=== PATIENT | female | born 1990 | race Two or more races ===

== ENCOUNTER 2022-08-21 14:11 | Outpatient (CLI) | payer OTHER | END 2022-08-21 16:00 | disposition home or self-care (01) | LOC: PRENATAL 14:11 | PROVIDERS: ATTEND Obstetrics & Gynecology Maternal & Fetal Medicine | DX: O36.80X0 Pregnancy with inconclusive fetal viability, not applicable or unspecified (principal); O34.219 Maternal care for unspecified type scar from previous cesarean delivery; O09.219 Supervision of pregnancy with history of pre-term labor, unspecified trimester; O10.019 Pre-existing essential hypertension complicating pregnancy, unspecified trimester; Z3A.11 11 weeks gestation of pregnancy ==

== ENCOUNTER 2022-10-16 12:32 | Outpatient (CLI) | payer OTHER | END 2022-10-16 13:59 | disposition home or self-care (01) | LOC: PRENATAL 12:32 | PROVIDERS: ATTEND Obstetrics & Gynecology Maternal & Fetal Medicine | DX: O35.3XX0 Maternal care for (suspected) damage to fetus from viral disease in mother, not applicable or unspecified (principal); O35.9XX0 Maternal care for (suspected) fetal abnormality and damage, unspecified, not applicable or unspecified; O10.019 Pre-existing essential hypertension complicating pregnancy, unspecified trimester; O34.219 Maternal care for unspecified type scar from previous cesarean delivery; O09.219 Supervision of pregnancy with history of pre-term labor, unspecified trimester; Z3A.19 19 weeks gestation of pregnancy ==

== ENCOUNTER 2023-01-03 16:33 | Outpatient (CLI) | payer OTHER ==
[2023-01-03] MEDS ORDERED: PRENATAL TABLE1 EAC1 PO (16:35)
== END 2023-01-03 19:45 | disposition home or self-care (01) ==
LOC: OBS/DEL 16:33
PROVIDERS: ATTEND Student in an Organized Health Care Education/Training Program
DX: O26.893 Other specified pregnancy related conditions, third trimester (principal); Z3A.31 31 weeks gestation of pregnancy

== ENCOUNTER 2023-01-11 13:20 | Outpatient (CLI) | payer OTHER ==
[~2023-01-11 13:20] MED LIST: PRENATAL TABLE1 EAC1 PO
== END 2023-01-11 17:24 | disposition home or self-care (01) ==
LOC: PRENATAL 13:20
PROVIDERS: ATTEND Obstetrics & Gynecology Maternal & Fetal Medicine
DX: O26.849 Uterine size-date discrepancy, unspecified trimester (principal); O36.8199 Decreased fetal movements, unspecified trimester, other fetus; O10.019 Pre-existing essential hypertension complicating pregnancy, unspecified trimester; O34.219 Maternal care for unspecified type scar from previous cesarean delivery; O09.219 Supervision of pregnancy with history of pre-term labor, unspecified trimester; Z3A.32 32 weeks gestation of pregnancy

== ENCOUNTER 2023-02-08 14:02 | Outpatient (CLI) | payer OTHER | END 2023-02-08 16:56 | disposition home or self-care (01) | LOC: PRENATAL 14:02 | PROVIDERS: ATTEND Obstetrics & Gynecology Maternal & Fetal Medicine | DX: O26.849 Uterine size-date discrepancy, unspecified trimester (principal); O36.8199 Decreased fetal movements, unspecified trimester, other fetus; O10.019 Pre-existing essential hypertension complicating pregnancy, unspecified trimester; O34.219 Maternal care for unspecified type scar from previous cesarean delivery; O09.219 Supervision of pregnancy with history of pre-term labor, unspecified trimester; Z3A.36 36 weeks gestation of pregnancy ==

== ENCOUNTER 2023-02-22 08:34 | Inpatient (IN) | payer OTHER ==
[~2023-02-22] VITALS: Ht 157.5 cm; Wt 3.2 kg
[2023-02-23 11:46] LABS: HEMATOCRIT 31.8 % (36.0-45.00); HEMOGLOBIN 10.2 g/dL (12.0-15.00); MEAN CELL VOLUME 87.8 fL (80.00-100.00); MEAN CORPUSCULAR HEMOGLOBIN 28.3 pg (27.00-32.0); MEAN CORPUSCULAR HGB CONC 32.2 g/dl (32.0-36.0); PLATELET COUNT 191 K/uL (150-450); RED BLOOD COUNT 3.62 M/uL (4.00-6.00)
[2023-02-23] MEDS ORDERED: LABETALOL HCL100 MG PO (11:49)
[2023-02-23 11:54] LABS: URINE APPEARANCE Clear; URINE BILIRRUBIN Negative (NEGATIVE); URINE BLOOD Negative; URINE COLOR Yellow; URINE GLUCOSE Negative (NEGATIVE); URINE LEUKOCYTE Large; URINE NITRATE Negative; URINE PROTEIN Negative (NEGATIVE); URINE UROBILINOGEN 0.2 E.U./dl
[2023-02-23 11:55] LABS: URINE BACTERIA 876.8 uL (0.0-1933); URINE EPITHELIAL CELLS 43.1 uL (0.0-38.8); URINE RBC 3.7 uL (0.0-20.8); URINE WBC 54.7 uL (0.0-23.2)
[2023-02-23 12:16] LABS: FIBRINOGEN 573 mg/dL (187.0-446.0); INR < 0.93; PARTIAL THROMBOPLASTIN TIME 29.1 SECONDS (22.0-34.0); PROTHROMBIN TIME 9.8 SECONDS (9.0-11.5)
[2023-02-23 12:20] LABS: ALBUMIN 2.7 gm/dL (3.4-5.0); BILIRUBIN TOTAL 0.34 mg/dL (0.3-1.2); CALCIUM 8.6 mg/dL (8.5-10.1); CREATININE SERUM 0.55 mg/dL (0.55-1.02); GFR 128.09; GLOBULINA 3.8 G/DL (2.4-3.5); POTASSIUM 3.9 mEq/L (3.5-5.1); TOTAL PROTEIN 6.5 gm/dL (6.4-8.2); URIC ACID 3.1 mg/dL (2.5-7.5)
[2023-03-01] MEDS ORDERED: FOLIVANE-PLUS1 EACH PO (11:28)
[2023-03-01 21:18] LABS: HEMATOCRIT 29.1 % (36.0-45.00); HEMOGLOBIN 9.8 g/dL (12.0-15.00); MEAN CELL VOLUME 86.2 fL (80.00-100.00); MEAN CORPUSCULAR HEMOGLOBIN 29.1 pg (27.00-32.0); MEAN CORPUSCULAR HGB CONC 33.8 g/dl (32.0-36.0); PLATELET COUNT 203 K/uL (150-450); RED BLOOD COUNT 3.37 M/uL (4.00-6.00); RED CELL DISTRIBUTION WIDTH 14.2 % (11.5-14.5)
== END 2023-03-03 12:53 | disposition home or self-care (01) | DRG 788 ==
LOC: OB/GYN 03-01 10:30 → O/R 03-01 10:35 → OB/GYN 03-01 12:30
PROVIDERS: ADMIT Student in an Organized Health Care Education/Training Program; ATTEND Student in an Organized Health Care Education/Training Program
PROC: 4A1HXCZ Monitoring of Products of Conception, Cardiac Rate, External Approach (ICD-10-PCS; 2023-03-01)
PROC: 10D00Z1 Extraction of Products of Conception, Low, Open Approach (ICD-10-PCS; principal; 2023-03-01 12:30)
DX: O34.211 Maternal care for low transverse scar from previous cesarean delivery (principal); Z3A.39 39 weeks gestation of pregnancy; Z37.0 Single live birth; Z20.822 Contact with and (suspected) exposure to COVID-19